=== PATIENT | male | born 1990 | race Caucasian/White ===

== ENCOUNTER 2017-01-13 15:48 | Emergency (ER) | payer MEDICAID, OTHER ==
--- OUTSIDE RECORDS SUMMARY | 2017-01-13 17:29 | XMS REPORT | Continuity of Care Document ---
:1990 Author Organization [facility] ([facility]) Address [address] [place] [address] Phone [phone] Care Team Providers Name Role Phone Provider, No-Primary Care Primary Care Provider Unavailable Source Comments This disclosure is being made pursuant to the Care Everywhere program, applicable federal and state laws, and may not contain all informaitonavailable regarding this patient.[facility] ([facility]) Active Allergies and Adverse Reactions Not on File Current Medications Prescription Sig. Disp. Refills Start Date End Date Status FLUoxetine (PROZAC) 20 take 1 Cap by mouth 30 Cap 2 06/17/2009 Active mg capsule Every morning for 1 dose. Indications: anger and irritability traZODone (DESYREL) 50 Take 1 Tab by mouth 30 Tab 2 05/20/2010 Active mg tablet at bedtime. Indications: Insomnia Active Problems Not on file Social History Tobacco Use Types Packs/Day Years Used Date Never Assessed Plan of Care Health Maintenance Due Date Last Done Comments Hepatitis B Vaccine (1 of 3 - Primary Series) 1990 Tdap Vaccine 1999 Lipid Disorder Screening 2006 MMR Vaccine 2006 Td Vaccine 2006 Varicella Vaccine (1 of 2 - Adult - No Evidence of 2006 Immunity) Influenza Vaccine: Seasonal (#1) 04/10/2016 Results from Last 3 Months Not on file
--- NOTE | 2017-01-13 17:32 | ERNOTE ---
Psychological HPI - Date Date of Service: 01/13/17 - General Chief Complaint: Anxiety Source: Reports: patient Exam Limitations: Reports: no limitations - Immun/Allergies/Home Medications Allergies/Adverse Reactions: Allergies diphenhydramine [From Benadryl] Allergy (Verified 01/13/17 17:00) Home Medications: HOME MEDICATIONS ALPRAZolam [Xanax] 0.25 mg PO BID PRN #8 tab 01/13/17 [Last Taken Unknown] - History of Present Illness Narrative: Patient presents to the ED for feeling anxious. He relates that a week ago he had what he felt was a panic attack. He relates that ever since then he has been feeling anxious. With the anxiety he feels like his hear will race, he feels like he needs to get up and move around. He was on Klonopin in the past but has stopped that. No suicidal ideation or homicidal ideation. No pains. No alcohol or other substance abuse. He has not other complaints at this time. Time Seen by Provider: 01/13/17 17:19 Arrived by: Reports: private car Onset/duration: Reports: gradual onset Intent: Denies: suicide, prior thoughts of suicide Mechanism: Denies: overdose Associated Symptoms: Denies: depressed, angry, frustrated, agitated, hallucinating, suicidal thoughts Prior Treament: Denies: recently seen Review of Systems - Review of Systems Constitutional: Absent: fever Respiratory: Absent: shortness of breath Cardiology: Absent: chest pain Gastrointestinal/Abdominal: Absent: abdominal pain Skin: Absent: rash Neurological: Absent: weakness Psych: Present: anxiety. Absent: depressed - Patient's Past Medical History Patient History - Medical: ADHD, Anxiety, Depression, Headache Patient History - Cardiac/Respiratory: No pertinent hx Patient History - Cancer: No Hx of Cancer Patient History - Surgical Procedures: Ear Tubes Patient History - Other: None - Social History Living Situations: home Abuse History: No History of abuse Psych History: Hx of Anxiety, Hx of Depression Smoking Status: Never smoker Alcohol Use: occasionally Drug Use: none - Immunizations Immunizations Up to Date: Yes Hx Pneumococcal Vaccination: No History of Influenza Vaccine: No Physical Exam - Physical Exam General Appearance: Present: alert, no apparent distress Eye Exam: Normal inspection: bilateral, PERRL: bilateral Ears, Nose, Throat: Present: normal ENT inspection Neck: Present: normal inspection Respiratory: Present: no respiratory distress, normal breath sounds, no accessory muscle use, lungs clear Cardiovascular/Chest: Present: regular rate, rhythm Gastrointestinal/Abdominal: Present: normal bowel sounds, nontender, nondistended, soft Back Exam: Present: normal range of motion Extremity Exam: Present: normal inspection, normal range of motion Neurological Exam: Present: alert, normal mood/affect, no motor/sensory deficits , 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 Absent: facial droop, motor weakness, disoriented to person Skin Exam: Absent: skin rash ED Progress - Results and Orders Patient's Lab Results:: I have reviewed the patient's lab results. - Vital Signs Patient's Vital Signs:: I have reviewed the patient's vital signs. Vital Signs: Vital Signs 01/13/17 01/13/17 15:59 17:02 Temperature 37.3 C 36.4 C L Pulse Rate 96 99 Respiratory 16 12 Rate Blood Pressure 141/84 147/90 O2 Sat by Pulse 96 96 Oximetry - Progress/Reassessment Chief Complaint: Anxiety Progress Note-Subjective: 01/13/17 18:15 I tolf him he needs to see his PCP this week to have his blood sugar re- checked. Will treat with Vistaril for anxiety, he may need addition altreatment but that can be reviewed by his PCP. No life threats noted. No Si or HI. I discussed warning signs and reasons to return as well as the need for close f/u. Departure Clinical Impression: Feeling anxious - Departure Disposition: Home self-care Condition: Stable Additional Instructions: Rest. Medication as directed. Follow-up with your primary doctor next week. They will need to assess how this medication has helped and will need to re- check your blood glucose. Return if your condition worsens or changes in any way. Prescriptions: ALPRAZolam [Xanax] 0.25 mg PO BID PRN #8 tab PRN Reason: Anxiety
[2017-01-13 17:43] LABS: Hematocrit 48.7 % (42.0-52.0); Hemoglobin 16.8 gm/dL (13.5-18.0); Mean Cell Volume 85.9 fl (78-100); Mean Corpuscular Hemoglobin 29.6 pg (27-31); Mean Corpuscular Hgb Conc 34.5 g/dl (32-36); Mean Platelet Volume 9.7 fl (6.0-9.5); Neutrophil # 8.5 K/mm3 (1.3-6.0); Neutrophil % 77.9 % (42-75.0); Platelet Count 268 K/mm3 (150-450); Red Blood Count 5.67 M/mm3 (4.7-6.0); Red Cell Distribution Width 12.7 % (11.5-14.0); White Blood Count 10.9 K/mm3 (4.0-10.5)
[2017-01-13 18:10] LABS: Albumin * 4.6 gm/dl (3.4-5.0); Anion Gap 13.3 mmol/L (6.8-13.8); BUN/Creatinine Ratio 6.5 (9.0-21.6); Bilirubin, Total 0.5 mg/dL (0.0-1.1); Ca. Corrected For Albumin 8.6 mg/dL (8.4-10.2); Calcium * 9.4 mg/dL (7.9-10.9); Carbon Dioxide 30.6 mmol/L (24-32.6); Potassium 3.9 mmol/L (3.4-4.6); TSH * 0.931 uIU/mL (0.358-3.74); Total Protein 7.8 gm/dL (6.2-8.2)
[2017-01-13 18:27] VITALS: BP 140/80
== END 2017-01-13 18:26 | disposition home or self-care (01) ==
LOC: ER 15:48
DX: R45.89 Other symptoms and signs involving emotional state (principal)

== ENCOUNTER 2020-04-18 17:12 | Observation (INO) ==
[2020-04-18 18:08] LABS: Hematocrit 50.7 % (42.0-52.0); Hemoglobin 17.1 gm/dL (13.5-18.0); Mean Cell Volume 88.8 fl (78-100); Mean Corpuscular Hemoglobin 29.9 pg (27-31); Mean Corpuscular Hgb Conc 33.7 g/dl (32-36); Mean Platelet Volume 9.8 fl (8-11.3); Neutrophil # 13.7 K/mm3 (1.3-6.0); Neutrophil % 79.6 % (42-75.0); Platelet Count 266 K/mm3 (150-450); Red Blood Count 5.71 M/mm3 (4.7-6.0); Red Cell Distribution Width 12.6 % (11.5-14.0); White Blood Count 17.3 K/mm3 (4.0-10.5)
[2020-04-18] MEDS ORDERED: NORMAL SALINE 1,000 ML IV ONE (18:18)
[2020-04-18 18:25] LABS: Albumin * 4.3 gm/dl (3.4-5.0); Anion Gap 7.8 mmol/L (6.8-13.8); BUN/Creatinine Ratio 10.1 (9.0-21.6); Bilirubin, Total 0.8 mg/dL (0.0-1.1); CRP 3.5 mg/dL (0.0-0.9); Ca. Corrected For Albumin 8.7 mg/dL (8.4-10.2); Calcium * 9.3 mg/dL (7.9-10.9); Potassium 3.8 mmol/L (3.4-4.6); Total Protein 7.7 gm/dL (6.2-8.2)
[2020-04-18 18:58] LABS: Lymphocyte 0 % (20-51); Neutrophil 100 % (42-75)
[2020-04-18 18:59] LABS: Bacteria Few; Yeast None Seen
[2020-04-18 19:00] LABS: White Blood Count Moderate
[2020-04-18] MEDS ORDERED: DIATRIZOATE MEGLUMINE, SODIUM 30 ML BTL PO ONE (19:22)
--- NOTE | 2020-04-18 19:37 | ERNOTE ---
GI Bleeding/Rectal Pain ER Date of Service: 04/18/20 Presenting Symptoms: other - Bloody diarrhea Time Seen by Provider: 04/18/20 17:42 Source: patient, RN notes reviewed Exam Limitations: no limitations Immunizations: IMMUNIZATION HX Immunizations Up to Date Yes History of Influenza Vaccine Yes Hx Pneumococcal Vaccination No Allergies/Adverse Reactions: Allergies chlorpheniramine [From Cardec DM (phenyleph-chlorphn)] Adverse Reaction (Mild, Verified 04/18/20 17:23) feels intoxicated dextromethorphan [From Cardec DM (phenyleph-chlorphn)] Adverse Reaction (Mild, Verified 04/18/20 17:23) feels intoxicated diphenhydramine [From Benadryl] Adverse Reaction (Mild, Verified 04/18/20 17:23) feels intoxicated phenylephrine [From Cardec DM (phenyleph-chlorphn)] Adverse Reaction (Mild, Verified 04/18/20 17:23) feels intoxicated Home Medications: HOME MEDICATIONS dextroamphetamine-amphetamine ER 30 mg 24hr capsule,extend release 30 mg PO DAILY #30 cap 04/09/20 [Last Taken Unknown] Narrative: Pop is a 29-year-old male who presents to the emergency department for bloody diarrhea. He reports that he began having diarrhea yesterday morning. This has progressed to the point where he is now just passing bright red blood. He has no abdominal pain currently, but he reports having severe left lower quadrant pain and cramping before he has to have a bowel movement. He denies any nausea or vomiting. He denies any sick contacts. He has not traveled out of the area or eaten anything unusual recently. He denies any fevers or chills. He also denies any recent antibiotic use. He has no prior history of any type of colitis. He reports a remote history of an ulcer, otherwise he has had no digestive problems. Date (Duration): 04/17/20 Timing: intermittent Quality/Severity: Present: severe, cramping Nausea/Vomiting: Present: none Abdominal Pain: Present: LLQ Rectal Bleeding: Present: bloody diarrhea Associated Symptoms: Denies: dizziness, rectal pain Prior Treament: Denies: recently seen Review of Systems - Review of Systems Constitutional: Absent: recent illness, fever, chills EYE: Present: no symptoms reported ENT: Absent: nose congestion, sore throat Respiratory: Absent: shortness of breath, cough Cardiology: Absent: palpitations, syncope Gastrointestinal/Abdominal: Present: See HPI, eating less, drinking less Genitourinary: Absent: dysuria, hematuria Musculoskeletal: Absent: muscle pain, joint pain Skin: Absent: rash, lesions Neurological: Absent: headache, dizziness/light-headedness Endocrine: Present: no symptoms reported Hematologic/Lymphatic: Absent: easy bruising, easy bleeding Psych: Present: no symptoms reported Medical History (Last Reviewed 04/18/20 @ 19:34 by Krystina Lee NP) Hypertension (Acute) Onset Date: Unknown Headache (Chronic) Onset Date: Unknown Depression (Chronic) Onset Date: Unknown Anxiety (Chronic) Onset Date: Unknown Ankle fracture (Acute) Onset Date: Unknown ADHD (Chronic) Onset Date: Unknown Surgical History: Surgical History (Last Reviewed 04/18/20 @ 19:34 by Krystina Lee NP) Hx of myringotomy Onset Date: Unknown Family History: Family History (Last Reviewed 04/18/20 @ 19:34 by Krystina Lee NP) Grandmother Cancer Grandfather Cancer Mother Diabetes Father Myocardial infarction Hypertension Social History: (Last Reviewed 04/18/20 @ 19:34 by Krystina Lee NP) Social History: adopted: No foster care: No group home: No Marital status: lives independently: No household members: spouse, children caregiver/support person: No current occupational status: employed current occupation: [employer] Highest education level completed: high school graduate Service: No Tobacco: Smoking Status: Never smoker Alcohol: alcohol intake: current alcohol intake frequency: a few times a month Substance Use: substance use type: does not use Dietary Habits: caffeine: Yes caffeine comment: daily Physical Exam - Physical Exam General Appearance: Present: alert, mild distress, thin Head Exam: Present: normal inspection Eye Exam: Normal inspection: bilateral Neck: Present: normal inspection, nontender, supple Respiratory: Present: no respiratory distress, normal breath sounds, no accessory muscle use, lungs clear Cardiovascular/Chest: Present: no murmur, normal peripheral pulses, tachycardia Gastrointestinal/Abdominal: Present: normal bowel sounds, nondistended, soft, tenderness - LLQ Back Exam: Present: normal inspection, normal range of motion Extremity Exam: Present: normal inspection, normal range of motion Neurological Exam: Present: alert, oriented, normal mood/affect, no motor/sensory deficits Skin Exam: Present: normal color, warm/dry Progress - Results and Orders Patient's Lab Results:: I have reviewed the patient's lab results. - Vital Signs Patient's Vital Signs:: I have reviewed the patient's vital signs. Vital Signs: Vital Signs 04/18/20 17:19 04/18/20 19:15 Temperature 36.5 C Pulse Rate 101 H 80 Respiratory Rate 16 15 Blood Pressure 139/90 H 128/78 O2 Sat by Pulse Oximetry 100 99 - X-Ray X-Ray #1 X-Ray: abdomen Interpretation: Reviewed by me X-ray Comments: Nonspecific bowel gas pattern - CT/Ultrasound CT/Ultrasound Narrative: CT abdomen/pelvis shows acute colitis of the mid to descending colon per night rad prelim report - Progress/Reassessment Chief Complaint: GI Bleed Progress:: Unchanged Plan - Plan Plan: I spoke with Dr. Jameson regarding the patient. He agreed to admit the patient to observation status for IV fluids and IV antibiotics. The patient will be kept n.p.o. Departure Clinical Impression: Acute ulcerative colitis with rectal bleeding - Departure Disposition: Still a patient Condition: Stable Referrals: Dayana Hartmann FNP [Primary Care Provider] -
[2020-04-18 21:13] LABS: Urine Bilirubin Negative (NEGATIVE); Urine Ketone Negative (NEGATIVE); Urine Nitrite Negative (NEGATIVE); Urine Protein Negative (NEGATIVE); Urine Urobilinogen Normal (NORMAL); Urine pH 5.5 pH (5.0-7.0)
[2020-04-18 21:20] LABS: Urine Appearance Clear (CLEAR); Urine Bacteria None Seen; Urine Blood 5 /ul (NEGATIVE); Urine Color Yellow; Urine RBC None Seen /hpf (0-5); Urine WBC TRACE /hpf (0-5)
[2020-04-18] MEDS: NORMAL SALINE 1,000 ML IV PRN (23:18)
[2020-04-18] MEDS: metroNIDAZOLE/SODIUM CHLORIDE 500 MG/100 ML BAG IV SCH (23:21)
[2020-04-19] MEDS: SULFAMETHOXAZOLE/TRIMETHOPRIM 10 ML in DEXTROSE 5 % IN WATER 250 ML IV SCH ×4 (00:28→10:35)
[2020-04-19] MEDS: metroNIDAZOLE/SODIUM CHLORIDE 500 MG/100 ML BAG IV SCH ×2 (05:39→14:20)
[2020-04-19 06:38] LABS: Hematocrit 42.2 % (42.0-52.0); Hemoglobin 14.5 gm/dL (13.5-18.0); Mean Cell Volume 87.7 fl (78-100); Mean Corpuscular Hemoglobin 30.1 pg (27-31); Mean Corpuscular Hgb Conc 34.4 g/dl (32-36); Mean Platelet Volume 9.4 fl (8-11.3); Neutrophil # 13.7 K/mm3 (1.3-6.0); Neutrophil % 77.9 % (42-75.0); Platelet Count 196 K/mm3 (150-450); Red Blood Count 4.81 M/mm3 (4.7-6.0); Red Cell Distribution Width 12.4 % (11.5-14.0); White Blood Count 17.6 K/mm3 (4.0-10.5)
[2020-04-19 06:53] LABS: Anion Gap 9.5 mmol/L (6.8-13.8); BUN/Creatinine Ratio 8.5 (9.0-21.6); Calcium * 8.4 mg/dL (7.9-10.9); Carbon Dioxide 29.2 mmol/L (24-32.6); Estimated Creat Clear 117.6; Potassium 3.7 mmol/L (3.4-4.6)
[2020-04-19] MEDS ORDERED: DEXTROAMP AMPHET 30 MG PO SCH (10:15)
[2020-04-19] MEDS: NORMAL SALINE 1,000 ML IV PRN (10:33)
--- NOTE | 2020-04-19 10:39 | HP ---
Chief Complaint - Chief Complaint Date of Service: 04/19/20 Time of Service: 10:00 Chief Complaint: Post prandial rectal bleeding, abdominal cramping History of Present Illness: Pop is a 29-year-old male who presents to the emergency department for bloody diarrhea. He reports that he began having diarrhea yesterday morning. This has progressed to the point where he is now just passing bright red blood. He has no abdominal pain currently, but he reports having severe left lower quadrant pain and cramping before he has to have a bowel movement. He denies any nausea or vomiting. He denies any sick contacts. He has not traveled out of the area or eaten anything unusual recently. He denies any fevers or chills. He also denies any recent antibiotic use. He has no prior history of any type of colitis. He reports a remote history of an ulcer, otherwise he has had no digestive problems. This morning Pop states that his bleeding is quite a bit better than it was yesterday. He is n.p.o. however. He is very thin and has a history of ADHD. He has had no previous rectal bleeding episodes. I have spoken with Dr. Guevara this morning and he will check with surgery to see if he can do an unprepped partial colonoscopy to get biopsies of his colon. He believes the CT scan more favors Crohn's disease than ulcerative colitis. Medical History (Last Reviewed 04/18/20 @ 22:31 by Jorge Gautam RN) Hypertension (Acute) Onset Date: Unknown Headache (Chronic) Onset Date: Unknown Depression (Chronic) Onset Date: Unknown Anxiety (Chronic) Onset Date: Unknown Ankle fracture (Acute) Onset Date: Unknown ADHD (Chronic) Onset Date: Unknown Surgical History: Surgical History (Last Reviewed 04/18/20 @ 22:31 by Jorge Gautam RN) Hx of myringotomy Onset Date: Unknown Family History: Family History (Last Reviewed 04/18/20 @ 22:31 by Jorge Gautam RN) Grandmother Cancer Grandfather Cancer Mother Diabetes Father Myocardial infarction Hypertension Social History: (Last Reviewed 04/18/20 @ 22:31 by Jorge Gautam RN) Social History: adopted: No foster care: No senior care: No Marital status: lives independently: No household members: spouse, children caregiver/support person: No current occupational status: employed current occupation: [employer] Highest education level completed: high school graduate Service: No Tobacco: Smoking Status: Never smoker Alcohol: alcohol intake: current alcohol intake frequency: a few times a month Substance Use: substance use type: does not use Dietary Habits: caffeine: Yes caffeine comment: daily Review Of Systems (GEN) - Review of Systems Generalized/Overall Review: Present: No Symptoms Reported EENTM: Present: No Symptoms Reported Respiratory: Present: No Symptoms Reported Cardiac: Present: No Symptoms Reported Abdominal: Present: Abdominal Pain, Diarrhea, Bright blood from rectum Genitourinary: Present: No Symptoms Reported Musculoskeletal: Present: No Symptoms Reported Neurological: Present: Emotional Problems - ADHD Skin: Present: No Symptoms Reported Endocrine: Present: No Symptoms Reported Misc: All systems neg except as marked Immunizations: IMMUNIZATION HX Immunizations Up to Date Yes History of Influenza Vaccine Yes Hx Pneumococcal Vaccination No Allergies/Adverse Reactions: Allergies Allergy/AdvReac Type Severity Reaction Status Date / Time chlorpheniramine AdvReac Mild feels Verified 04/18/20 22:32 [From Cardec DM intoxicated (phenyleph-chlorphn)] dextromethorphan AdvReac Mild feels Verified 04/18/20 22:32 [From Cardec DM intoxicated (phenyleph-chlorphn)] diphenhydramine AdvReac Mild feels Verified 04/18/20 22:32 [From Benadryl] intoxicated phenylephrine AdvReac Mild feels Verified 04/18/20 22:32 [From Cardec DM intoxicated (phenyleph-chlorphn)] Home Medications: HOME MEDICATIONS dextroamphetamine-amphetamine ER 30 mg 24hr capsule,extend release 30 mg PO DAILY #30 cap 04/09/20 [Last Taken Unknown] Exam - Exam Vital Signs: Vital Signs - Last Taken Temp 36.5 C 04/19/20 08:34 Pulse 70 04/19/20 08:34 Resp 16 04/19/20 08:34 BP 112/70 04/19/20 08:34 Pulse Ox 97 04/19/20 08:34 Constitutional: Present: Alert, Oriented x3, Cooperative, Well developed, Well nourished - But appears to be very thin, Young ENT Exam: Present: normal ENT inspection, hearing grossly normal, pharynx normal, TMs normal Eye Exam: bilateral eye: normal inspection, PERRL, EOMI Neck: Present: non-tender, full range of motion, supple, normal inspection, trachea midline Back Exam: Present: normal inspection, no CVA tenderness, no vertebral tenderness Breasts: Present: Exam deferred Respiratory: Present: chest non-tender, lungs clear, normal breath sounds, no respiratory distress, no accessory muscle use Cardiovascular/Chest: Present: normal peripheral pulses, regular rate, rhythm, no chest tenderness, no edema, no gallop, no JVD, no murmur, no rub Peripheral Pulses: carotid (R): 2+, carotid (L): 2+, radial (R): 2+, radial (L): 2+ Abdomen: Present: soft, tender, guarding - Left lower quadrant, negative Osman sign. Absent: rebound tenderness, CVA tenderness, suprapubic tenderness, hypoactive - Bowel sounds are hyperactive. 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, no motor/sensory deficits, alert, normal mood/affect, oriented x 3 Appearance: Present: appropriate appearance, appropriate insight, neat, no memory impairment Eye contact: Present: cooperative, good eye contact, normal speech Thoughts: Present: normal thought pattern, no apparent hallucination Diagnostic Studies: Abnormal Lab Results 04/18/20 04/18/20 04/18/20 Range/Units 17:52 17:56 17:56 WBC 17.3 H (4.0-10.5) K/mm3 Immature Gran # (Auto) 0.05 H (0.000-0.0310) K/mm3 Neutrophils % 79.6 H (42-75.0) % Lymphocytes % 11.9 L (20-51) % Neutrophils # 13.7 H (1.3-6.0) K/mm3 Monocytes # 1.2 H (0.0-1.0) k/mm3 Carbon Dioxide 34.0 H (24-32.6) mmol/L BUN/Creatinine Ratio (9.0-21.6) ALT 18 L (19-67) U/L C-Reactive Prot, Quant 3.5 H (0.0-0.9) mg/dL Urine Blood (NEGATIVE) /ul Fluid Lymphocytes 0 L (20-51) % Stool Occult Blood Stool Neutrophil # 100 H (42-75) % Stool Leukocytes, Qual Moderate H 04/18/20 04/18/20 04/19/20 Range/Units 17:58 21:10 06:30 WBC 17.6 H (4.0-10.5) K/mm3 Immature Gran # (Auto) 0.06 H (0.000-0.0310) K/mm3 Neutrophils % 77.9 H (42-75.0) % Lymphocytes % 13.7 L (20-51) % Neutrophils # 13.7 H (1.3-6.0) K/mm3 Monocytes # 1.2 H (0.0-1.0) k/mm3 Carbon Dioxide (24-32.6) mmol/L BUN/Creatinine Ratio (9.0-21.6) ALT (19-67) U/L C-Reactive Prot, Quant (0.0-0.9) mg/dL Urine Blood 5 H (NEGATIVE) /ul Fluid Lymphocytes (20-51) % Stool Occult Blood Positive H Stool Neutrophil # (42-75) % Stool Leukocytes, Qual 04/19/20 Range/Units 06:30 WBC (4.0-10.5) K/mm3 Immature Gran # (Auto) (0.000-0.0310) K/mm3 Neutrophils % (42-75.0) % Lymphocytes % (20-51) % Neutrophils # (1.3-6.0) K/mm3 Monocytes # (0.0-1.0) k/mm3 Carbon Dioxide (24-32.6) mmol/L BUN/Creatinine Ratio 8.5 L (9.0-21.6) ALT (19-67) U/L C-Reactive Prot, Quant (0.0-0.9) mg/dL Urine Blood (NEGATIVE) /ul Fluid Lymphocytes (20-51) % Stool Occult Blood Stool Neutrophil # (42-75) % Stool Leukocytes, Qual Microbiology 04/18/20 17:52 Stool Culture - Preliminary Stool No Pathogens Isolated Laboratory Results WBC 17.6 K/mm3 (4.0-10.5) H 04/19/20 06:30 RBC 4.81 M/mm3 (4.7-6.0) 04/19/20 06:30 Hgb 14.5 gm/dL (13.5-18.0) 04/19/20 06:30 Hct 42.2 % (42.0-52.0) 04/19/20 06:30 MCV 87.7 fl (78-100) 04/19/20 06:30 MCH 30.1 pg (27-31) 04/19/20 06:30 MCHC 34.4 g/dl (32-36) 04/19/20 06:30 RDW 12.4 % (11.5-14.0) 04/19/20 06:30 Plt Count 196 K/mm3 (150-450) 04/19/20 06:30 MPV 9.4 fl (8-11.3) 04/19/20 06:30 Immature Gran % (Auto) 0.30 % (0.001-0.429) 04/19/20 06:30 Immature Gran # (Auto) 0.06 K/mm3 (0.000-0.0310) H 04/19/20 06:30 Neutrophils % 77.9 % (42-75.0) H 04/19/20 06:30 Lymphocytes % 13.7 % (20-51) L 04/19/20 06:30 Monocytes % 6.9 % (0.0-9) 04/19/20 06:30 Eosinophils % 1.0 % (0.0-3.0) 04/19/20 06:30 Basophils % 0.2 % (0.0-1.0) 04/19/20 06:30 Nucleated RBC % 0.0 k/mm3 (0-1) 04/19/20 06:30 Neutrophils # 13.7 K/mm3 (1.3-6.0) H 04/19/20 06:30 Lymphocytes # 2.41 k/mm3 (1.5-3.5) 04/19/20 06:30 Monocytes # 1.2 k/mm3 (0.0-1.0) H 04/19/20 06:30 Eosinophils # 0.2 k/mm3 (0.0-0.7) 04/19/20 06:30 Absolute Basophils 0.0 k/mm3 (0.0-0.1) 04/19/20 06:30 ESR 5 mm/hr (0-10) 04/19/20 06:30 Sodium 139 mmol/L (132-142) 04/19/20 06:30 Plasma Sodium 139 mmol/L (130-142) 04/19/20 06:30 Potassium 3.7 mmol/L (3.4-4.6) 04/19/20 06:30 Chloride 104 mmol/L (97-106) 04/19/20 06:30 Carbon Dioxide 29.2 mmol/L (24-32.6) 04/19/20 06:30 Anion Gap 9.5 mmol/L (6.8-13.8) 04/19/20 06:30 BUN 8 mg/dL (6-23) 04/19/20 06:30 Creatinine 0.94 mg/dL (0.4-1.4) 04/19/20 06:30 Est GFR (Non-Af Amer) 99 mL/min (60-130) D 04/19/20 06:30 BUN/Creatinine Ratio 8.5 (9.0-21.6) L 04/19/20 06:30 Random Glucose 96 mg/dL (70-110) 04/19/20 06:30 Calcium 8.4 mg/dL (7.9-10.9) 04/19/20 06:30 Calcium Adj for Albumin 8.7 mg/dL (8.4-10.2) 04/18/20 17:56 Total Bilirubin 0.8 mg/dL (0.0-1.1) 04/18/20 17:56 AST 16 U/L (0-48) 04/18/20 17:56 ALT 18 U/L (19-67) L 04/18/20 17:56 Alkaline Phosphatase 81 U/L (50-170) 04/18/20 17:56 C-Reactive Prot, Quant 3.5 mg/dL (0.0-0.9) H 04/18/20 17:56 Total Protein 7.7 gm/dL (6.2-8.2) 04/18/20 17:56 Albumin 4.3 gm/dl (3.4-5.0) 04/18/20 17:56 Urine Color Yellow 04/18/20 21:10 Urine Appearance Clear (CLEAR) 04/18/20 21:10 Urine pH 5.5 pH (5.0-7.0) 04/18/20 21:10 Ur Specific [place] 1.010 SP.GR. (1.005-1.030) 04/18/20 21:10 Urine Protein Negative mg/dL (NEGATIVE) 04/18/20 21:10 Urine Glucose (UA) Negative mg/dL (NEGATIVE) 04/18/20 21:10 Urine Ketones Negative mg/dL (NEGATIVE) 04/18/20 21:10 Urine Blood 5 /ul (NEGATIVE) H 04/18/20 21:10 Urine Nitrate Negative (NEGATIVE) 04/18/20 21:10 Urine Bilirubin Negative mg/dl (NEGATIVE) 04/18/20 21:10 Urine Urobilinogen Normal EU/dl (NORMAL) 04/18/20 21:10 Ur Leukocyte Esterase Negative /ul (NEGATIVE) 04/18/20 21:10 Urine RBC None seen /hpf (0-5) 04/18/20 21:10 Urine WBC Trace /hpf (0-5) 04/18/20 21:10 Ur Epithelial Cells None seen /hpf (0-5) 04/18/20 21:10 Urine Bacteria None seen (NONE) 04/18/20 21:10 Urine Culture Comments No culture indicated 04/18/20 21:10 Fluid Lymphocytes 0 % (20-51) L 04/18/20 17:52 Stool Occult Blood Positive H 04/18/20 17:58 Stool White Cell Res 4 Few 04/18/20 17:52 Stool Neutrophil # 100 % (42-75) H 04/18/20 17:52 Stool Leukocytes, Qual Moderate H 04/18/20 17:52 Stl C.difficile Tox A&B Negative (Negative) 04/18/20 17:52 Yeast (Wet Prep) None seen 04/18/20 17:52 Assessment/Plan - Narrative Narrative: 1. Surgery consultation for diagnostic colonoscopy with biopsy by Dr. Guevara. 2. Metronidazole and Bactrim were both started in ER last night and are continued for now. 3. Add mesalamine 800 mg 3 times daily 4. Possible discharge today or perhaps tomorrow. 5. He can resume his ADHD medicine with a sip of water. 6. Keep n.p.o. otherwise until after his colonoscopy if it is to be done today. 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
[2020-04-19] MEDS: MESALAMINE 400 MG CAPSULE PO SCH ×2 (13:44→17:40)
--- NOTE | 2020-04-19 13:48 | ANES ---
Anesthesia Pre Procedure Eval Vitals/Labs: Last Vital Signs Temp 36.5 C 04/19/20 08:34 Pulse 70 04/19/20 08:34 Resp 16 04/19/20 08:34 BP 112/70 04/19/20 08:34 Pulse Ox 97 04/19/20 08:34 HOME MEDICATIONS dextroamphetamine-amphetamine ER 30 mg 24hr capsule,extend release 30 mg PO DAILY #30 cap 04/09/20 [Last Taken Unknown] Allergies/Adverse Reactions: Allergies Allergy/AdvReac Type Severity Reaction Status Date / Time chlorpheniramine AdvReac Mild feels Verified 04/18/20 22:32 [From Cardec DM intoxicated (phenyleph-chlorphn)] dextromethorphan AdvReac Mild feels Verified 04/18/20 22:32 [From Cardec DM intoxicated (phenyleph-chlorphn)] diphenhydramine AdvReac Mild feels Verified 04/18/20 22:32 [From Benadryl] intoxicated phenylephrine AdvReac Mild feels Verified 04/18/20 22:32 [From Cardec DM intoxicated (phenyleph-chlorphn)] - Planned Procedure Planned Procedure: ACUTE COLITIS W RECTAL BLEEDING Medication List Reviewed:: Yes Allergies Verified: Yes Medical History (Last Reviewed 04/19/20 @ 13:47 by Tommie Meneses CRNA) Hypertension (Acute) Onset Date: Unknown Headache (Chronic) Onset Date: Unknown Depression (Chronic) Onset Date: Unknown Anxiety (Chronic) Onset Date: Unknown Ankle fracture (Acute) Onset Date: Unknown ADHD (Chronic) Onset Date: Unknown Surgical History (Last Reviewed 04/19/20 @ 13:47 by Tommie Meneses CRNA) Hx of myringotomy Onset Date: Unknown Family History (Last Reviewed 04/19/20 @ 13:47 by Tommie Meneses CRNA) Grandmother Cancer Grandfather Cancer Mother Diabetes Father Myocardial infarction Hypertension - Family Anesthesia History Family History:: no untoward family reactions to anesthesia - Airway/Neck/Teeth Within Normal Limits:: Yes Teeth Condition: intact Neck Exam: full range of motion Mallampatti Score: 1 Thyromental (T-M) distance: > 6 cm Mandibulo Hyoid distance: > 3 cm - Respiratory Respiratory Physical: lungs clear Smoking Status: Never smoker Sleep Apnea currently treated: No Sleep Apnea by current assessment: No - Cardiovascular Tolerate Activity: Good Heart Sounds: S1 & S2, Regular - Gastrointestinal NPO since: MN - Anesthesia Assessment and Plan ASA Class: PS, II, E Anesthesia Type Plan: MAC Planned difficult intubation/equipment available: No
--- NOTE | 2020-04-19 13:58 | CONS ---
[facility] - General Date of Service: 04/19/20 Source: patient, family, RN/MD, RN notes reviewed, old records Exam Limitations: no limitations - History of Present Illness Associated Symptoms: denies symptoms Allergies/Adverse Reactions: Allergies chlorpheniramine [From Cardec DM (phenyleph-chlorphn)] Adverse Reaction (Mild, Verified 04/18/20 22:32) feels intoxicated dextromethorphan [From Cardec DM (phenyleph-chlorphn)] Adverse Reaction (Mild, Verified 04/18/20 22:32) feels intoxicated diphenhydramine [From Benadryl] Adverse Reaction (Mild, Verified 04/18/20 22:32) feels intoxicated phenylephrine [From Cardec DM (phenyleph-chlorphn)] Adverse Reaction (Mild, Verified 04/18/20 22:32) feels intoxicated Home Medications: Home Medications Medication Instructions Recorded Last Taken dextroamphetamine-amphetamine ER 30 mg PO DAILY #30 cap 04/09/20 Unknown 30 mg 24hr capsule,extend release Procedures Closure of skin and subcutaneous tissue of other sites (11/27/05) Medications - Medications Current Medications: Current Medications Metronidazole (Flagyl) 500 mg in 100 mls @ 100 mls/hr IV Q8H DINA; Protocol Stop: 05/18/20 22:31 Last Infusion: 04/19/20 06:39 Dose: Infused Documented by: Sodium Chloride (Sodium Chloride 0.9%) 1,000 mls @ 125 mls/hr IV .Q8H PRN PRN Reason: HYDRATION Stop: 05/18/20 22:20 Last Admin: 04/19/20 10:33 Dose: 125 mls/hr Documented by: Trimethoprim/Sulfamethoxazole (10 ml/ Dextrose/Water) 260 mls @ 250 mls/hr IV Q12H DINA; Protocol Stop: 05/18/20 22:31 Last Infusion: 04/19/20 11:38 Dose: Infused Documented by: Dextroamp-Amphet Er (30 Mg) 30 mg PO DAILY DINA Stop: 05/19/20 10:16 Last Admin: 04/19/20 10:54 Dose: Not Given Documented by: Review of Systems - Review of Systems Narrative: He states that the day before yesterday he got "a God awful pain" he then had explosive uncontrolled diarrhea. His several times "until there was a little blood there". During the CT scan he had terrible cramping and thought he was going to have an involuntary bowel movement on the table Generalized/Overall Review: Absent: Chills, Fever EENTM: Present: No Symptoms Reported Respiratory: Present: No Symptoms Reported Cardiac: Present: No Symptoms Reported Abdominal: Present: Other - When this started he had severe cramps and explosive diarrhea. Currently no abdominal pain Genitourinary: Present: No Symptoms Reported Musculoskeletal: Present: No Symptoms Reported Neurological: Present: No Symptoms Reported Skin: Present: No Symptoms Reported Physical Examination - Exam Vital Signs: Vital Signs - Last Taken Temp 36.5 C 04/19/20 08:34 Pulse 70 04/19/20 08:34 Resp 16 04/19/20 08:34 BP 112/70 04/19/20 08:34 Pulse Ox 97 04/19/20 08:34 O2 Oxygen Delivery Method Room Air Comprehensive Narative: 04/19/20 13:49 He is alert oriented and appears in absolutely no distress. His attention is equally divided between my questions and the TV. He is not a precise historian 04/19/20 13:49 Constitutional: Present: Alert, Oriented x3, Cooperative, Other - Thin almost underweight ENT Exam: Present: normal ENT inspection Eye Exam: bilateral eye: normal inspection Neck: Present: normal inspection Respiratory: Present: no respiratory distress Cardiovascular/Chest: Present: regular rate, rhythm Abdomen: Present: other - Scaphoid. Very tympanitic to percussion but no percussion tenderness. Soft with no direct tenderness even over the left later al abdomen /Rectal: Present: Exam deferred Extremity: Present: normal range of motion Skin Exam: Present: normal color Neurologic: Present: orthotic/prosthetic clinician II-XII nml as tested, normal cerebellar test, no motor/sensory deficits Appearance: Present: appropriate appearance Eye contact: Present: cooperative, normal speech Thoughts: Present: normal thought pattern - Results and Findings: Narrative: CT scan of the abdomen and pelvis shows thickening of the descending colon. The sigmoid and rectum appear relatively normal. Lab/Microbiology results last 24 hrs: Abnormal/Pending Laboratory Last 24 HRS 04/19/20 04/19/20 04/18/20 06:30 06:30 21:10 WBC 17.6 H Immature Gran # (Auto) 0.06 H Neutrophils % 77.9 H Lymphocytes % 13.7 L Neutrophils # 13.7 H Monocytes # 1.2 H Carbon Dioxide BUN/Creatinine Ratio 8.5 L ALT C-Reactive Prot, Quant Urine Blood 5 H Fluid Lymphocytes Stool Occult Blood Stool Neutrophil # Stool Leukocytes, Qual 04/18/20 04/18/20 04/18/20 17:58 17:56 17:56 WBC 17.3 H Immature Gran # (Auto) 0.05 H Neutrophils % 79.6 H Lymphocytes % 11.9 L Neutrophils # 13.7 H Monocytes # 1.2 H Carbon Dioxide 34.0 H BUN/Creatinine Ratio ALT 18 L C-Reactive Prot, Quant 3.5 H Urine Blood Fluid Lymphocytes Stool Occult Blood Positive H Stool Neutrophil # Stool Leukocytes, Qual 04/18/20 17:52 WBC Immature Gran # (Auto) Neutrophils % Lymphocytes % Neutrophils # Monocytes # Carbon Dioxide BUN/Creatinine Ratio ALT C-Reactive Prot, Quant Urine Blood Fluid Lymphocytes 0 L Stool Occult Blood Stool Neutrophil # 100 H Stool Leukocytes, Qual Moderate H Culture 04/18/20 17:52 Stool Culture - Preliminary Stool No Pathogens Isolated - Assessments/Findings (1) Diarrhea Problem: Acute (2) Abnormal CT scan, colon Diagnosis(s): He does have an elevated white blood cell count and did have blood in the bowel movements. The CT scan could be due to inflammatory bowel disease or under distention of the colon. A colonoscopy could be performed to directly visualize the area and obtain biopsies if appropriate. Pamphlets on colon screening were reviewed with him and given to him. I discussed colonoscopy with biopsy with him and his . The risks and possible complications were explained. After an interactive discussion his questions were answered to his apparent satisfaction and he has given informed consent for colonoscopy with biopsy. Rapid COVID-19 test will be performed. Endoscopy tentatively scheduled for later today Problem: Acute
[2020-04-19] MEDS ORDERED: LIDOCAINE HCL 20 ML VIAL ONE (16:46)
[2020-04-19] MEDS ORDERED: PROPOFOL VIAL IV ONE (16:46)
--- NOTE | 2020-04-19 18:00 | OR ---
Operative Report - Dictated Report Narrative: OPERATIVE REPORT DATE OF OPERATION: 04/19/2020 PREOPERATIVE DIAGNOSIS: Rectal bleeding, abnormal CAT scan of the descending colon POSTOPERATIVE DIAGNOSIS: Colitis (pathology pending) OPERATION: Colonoscopy with biopsies SURGEON: Aishwarya Guevara MD ANESTHESIA: OTONIEL Muñoz CRNA INDICATIONS FOR PROCEDURE: The patient is a 29-year-old male who presented to the emergency room with abdominal cramping and bloody diarrhea of 1 days duration. He has an elevated white blood cell count and CRP. CT scan of the abdomen and pelvis demonstrates colon thickening from the splenic flexure down the descending colon. He is brought for endoscopy to obtain biopsies for pathology FINDINGS: Colitis extending from 40 cm to 90 cm, with relative sparing of the rectum and sigmoid (pathology pending) NARRATIVE OF PROCEDURE: The patient was identified in the holding area, and prior to the administration of anesthetic, a multidisciplinary timeout was observed. With the patient in the left lateral position and after the administration of intravenous sedation, the perineum was inspected. There was no evidence of pilonidal disease or skin breakdown. The external appearance of the anus was normal. Sphincter tone was lax. The flexible fiberoptic colonoscope was inserted into the rectum which was insufflated with air. The rectal mucosa and submucosal vascular pattern appeared normal. The scope was advanced through the sigmoid colon, which appeared relatively normal to approximately 40 cm. The colon at this level was edematous and erythematous. There were exudates but no anna ulcers. The scope was advanced through the inflammation up the descending colon to approximately 90 cm which represented the splenic flexure. At this juncture the lumen was narrow and it was elected not to pursue proximal exam. Accordingly the area was lavaged and photographs obtained. Multiple biopsies of the most severely inflamed areas were obtained. The biopsy sites appeared hemostatic. The scope was then slowly withdrawn and a photograph taken of a commissary representative view of the descending colon. Additional biopsies were taken. No diverticular openings were demonstrated. No polyps were encountered. Upon withdrawal, the line of demarcation appeared to be approximately 40 cm. The distal colon mucosa appeared more normal. The scope was gradually withdrawn to the level of the rectum. Multiple biopsies were taken at this level. Biopsy sites appeared hemostatic. As much insufflated air as possible was removed. The scope was withdrawn from the patient and the procedure terminated. The patient tolerated the anesthetic and procedure well without complication and was transferred back to his room awake and in stable condition. I reviewed the findings and pictures with the patient and his . I explained that the etiology of the colitis will depend upon the pathologic findings, and treatment will be dependent upon that. I discussed the case with Dr. Jameson who will arrange for discharge later this evening. Reviewed and electronically signed
--- NOTE | 2020-04-19 19:23 | DS ---
(1) Inflammatory bowel disease Problem: Acute (2) Acute hemorrhagic colitis Problem: Acute (3) Abdominal cramping in left lower quadrant Problem: Acute (4) ADHD Problem: Chronic Qualifiers: Attention deficit-hyperactivity disorder type: combined inattentive- hyperactive Qualified Code(s): F90.2 - Attention-deficit hyperactivity disorder, combined type Date of Discharge:: 04/19/20 Hospital Course: Pop Alfaro is a 29-year-old male admitted through ER for postprandial bloody diarrhea. Onset had been several days previous but had worsened on Sunday. He presented Sunday evening and was evaluated in ER including CT scan which showed what appeared to be a thickening of the colon wall suggestive of a colitis. He has an elevated white count of 17,400 yesterday and 17,600 today. He has been kept n.p.o. and the diarrhea and the bleeding has seemingly stopped. His CRP was high and sed rate was elevated. He is feeling a lot better today than he was yesterday after receiving some IV fluids and starting on antibiotics of metronidazole and Bactrim. Have also restarted him on mesalamine. Dr. Bell saw him in consultation and took him for endoscopy this evening finding evidence of colitis. Biopsies were taken and will be sent for histopathological diagnosis. Until we get the pathology report back I will keep him on his current medications. The most likely diagnosis will be Crohn's disease but UC and even infectious diarrhea are not completely ruled out. Procedures Performed: see notes below - Colonoscopy to 90 cm. By . Results and Findings: Pending Mircobiology Results 04/18/20 17:52 Stool Stool Culture - Preliminary No Pathogens Isolated Lab Pending Results 04/18/20 17:52: Fluid Lymphocytes 0 L, Stool White Cell Res 4 Few, Stool Neutrophil # 100 H, Stool Leukocytes, Qual Moderate H, Yeast (Wet Prep) None seen 04/18/20 17:52: Stl C.difficile Tox A&B Negative 04/18/20 17:56: WBC 17.3 H, RBC 5.71, Hgb 17.1, Hct 50.7, MCV 88.8, MCH 29.9, MCHC 33.7, RDW 12.6, Plt Count 266, MPV 9.8, Immature Gran % (Auto) 0.30, Immature Gran # (Auto) 0.05 H, Neutrophils % 79.6 H, Lymphocytes % 11.9 L, Monocytes % 6.8, Eosinophils % 1.1, Basophils % 0.3, Nucleated RBC % 0.0, Neutrophils # 13.7 H, Lymphocytes # 2.05, Monocytes # 1.2 H, Eosinophils # 0.2, Absolute Basophils 0.1 04/18/20 17:56: Sodium 139, Plasma Sodium 139, Potassium 3.8, Chloride 101, Carbon Dioxide 34.0 H, Anion Gap 7.8, BUN 12, Creatinine 1.19, Est GFR (Non-Af Amer) 76, BUN/Creatinine Ratio 10.1, Random Glucose 81, Calcium 9.3, Calcium Adj for Albumin 8.7, Total Bilirubin 0.8, AST 16, ALT 18 L, Alkaline Phosphatase 81, C-Reactive Prot, Quant 3.5 H, Total Protein 7.7, Albumin 4.3 04/18/20 17:58: Stool Occult Blood Positive H 04/18/20 21:10: Urine Color Yellow, Urine Appearance Clear, Urine pH 5.5, Ur Specific Riparius 1.010, Urine Protein Negative, Urine Glucose (UA) Negative, Urine Ketones Negative, Urine Blood 5 H, Urine Nitrate Negative, Urine Bilirubin Negative, Urine Urobilinogen Normal, Ur Leukocyte Esterase Negative, Urine RBC None seen, Urine WBC Trace, Ur Epithelial Cells None seen, Urine Bacteria None seen, Urine Culture Comments No culture indicated 04/19/20 06:30: WBC 17.6 H, RBC 4.81, Hgb 14.5, Hct 42.2, MCV 87.7, MCH 30.1, MCHC 34.4, RDW 12.4, Plt Count 196, MPV 9.4, Immature Gran % (Auto) 0.30, Immature Gran # (Auto) 0.06 H, Neutrophils % 77.9 H, Lymphocytes % 13.7 L, Monocytes % 6.9, Eosinophils % 1.0, Basophils % 0.2, Nucleated RBC % 0.0, Neutrophils # 13.7 H, Lymphocytes # 2.41, Monocytes # 1.2 H, Eosinophils # 0.2, Absolute Basophils 0.0 04/19/20 06:30: ESR 5 04/19/20 06:30: Sodium 139, Plasma Sodium 139, Potassium 3.7, Chloride 104, Carbon Dioxide 29.2, Anion Gap 9.5, BUN 8, Creatinine 0.94, Est GFR (Non-Af Amer) 99 D, BUN/Creatinine Ratio 8.5 L, Random Glucose 96, Calcium 8.4 04/19/20 13:22: SARS-CoV-2 (PCR) Not detected Discharge Location: Home Disposition: Home self-care Condition: Stable Discharge Activity: Activity as tolerated Discharge Diet: General/regular food - But avoid dairy until the bleeding and diarrhea have stopped. Additional Patient Instructions (free text): See Dayana Hartmann for follow-up in 1 week. Complete Home Medications List: Complete Home Medication List: dextroamphetamine-amphetamine ER 30 mg 24hr capsule,extend release 30 mg PO DAILY #30 cap 04/09/20 Mesalamine [Delzicol] 800 mg PO TID #60 cap 04/19/20 Sulfamethoxazole/Trimethoprim [Bactrim (SMX 80 mg & TMP 16 mg/ml)] 10 ml IV Q12H #14 ml 04/19/20 metroNIDAZOLE/SODIUM CHLORIDE [Flagyl] 500 mg PO Q8H #45 bag 04/19/20 Forms: Patient Portal Registration
[2020-04-19 19:30] VITALS: BP 122/63
== END 2020-04-19 19:59 | disposition home or self-care (01) ==
LOC: ER 17:12 → MS 17:12
PROVIDERS: ADMIT Family Medicine; ATTEND Family Medicine
DX: F90.2 Attention-deficit hyperactivity disorder, combined type; K58.0 Irritable bowel syndrome with diarrhea; Z11.59 Encounter for screening for other viral diseases; R10.32 Left lower quadrant pain; K92.2 Gastrointestinal hemorrhage, unspecified; I10 Essential (primary) hypertension
CPT/HCPCS: 36415; 74019; 74020; 74177; 80048; 80053; 81001; 82272; 85025; 85652; 86140; 87045; 87046; 87177; 87209; 87493; 88305; 88888; 89055; 96365; 96366; 96367; 99284; 99285; C9803; G0378; Q9963; Q9967